=== PATIENT | female | born 1955 | race Caucasian/White ===

== ENCOUNTER 2022-05-11 15:46 | Emergency (ER) | payer BC ==
[2022-05-11 15:58] VITALS: BP 167/93
--- NOTE | 2022-05-11 16:16 | XRAY Report ---
PROCEDURE: Wrist 4 View LT INDICATIONS: Trauma TECHNIQUE: 4 views of the wrist were acquired. COMPARISON: None FINDINGS: Bones: Mildly displaced impacted comminuted fracture of the distal radius with articular surface exte nsion to the radiocarpal joint. Scaphoid view: No evidence of scaphoid fracture. Soft tissues: No suspicious soft tissue calcifications. IMPRESSION: Distal radial fracture as above. Reviewed by: Rozina Linn MD on 05/11/2022 4:15 PM PST Approved by: Rozina Linn MD on 05/11/2022 4:15 PM PST Station ID: [id number]
[2022-05-11] MEDS ORDERED: HYDROcod/ACET 5/325 Prepack 4 PO STA (17:32)
--- NOTE | 2022-05-11 17:34 | ED Physician Documentation ---
PD HPI UPPER EXT INJURY - Stated complaint Stated Complaint: WRIST PAIN - Chief complaint Chief Complaint: Trauma Ext - History obtained from History obtained from: Patient (67-year-old right-handed woman was playing with her grandchildren in the snow and slipped backwards and fell on an outstretched left wrist with mild to moderate pain there. No other injuries. This happened today. Of note she is visiting from out of town.) Review of Systems Eyes: reports: Reviewed and negative PD PAST MEDICAL HISTORY - Allergies Allergies/Adverse Reactions: Allergies Allergy/AdvReac Type Severity Reaction Status Date / Time Penicillins Allergy Hives Verified 05/11/22 15:57 PD ED PE NORMAL - Vitals Vital signs reviewed: Yes - General General: Alert and oriented X 3, No acute distress - Neck Neck: No bony TTP - Extremities Extremities: Other (Mild tenderness of the distal radius without deformity or limited range of motion there. Normal neurovascular function in the left hand.) - Neuro Neuro: Alert and oriented X 3, Normal speech Results - Vitals Vitals: Vital Signs - 24 hr 05/11/22 15:55 Temperature 35.8 C L Heart Rate 81 Respiratory 16 Rate Blood Pressure 167/93 H O2 Saturation 99 Oxygen O2 Source Room air - Rads (name of study) 4-view x-ray of the left wrist demonstrates a impaction fracture of the distal radius Radiology: Final report received, EMP read indepedently Procedures - Splint (location) - Minor Left upper extremity/wrist Splint applied by: Tech Type of splint: Fiberglass, Thumb spica Other: Patient tolerated well, No complications, Neurovascular intact Departure - Departure Disposition: 01 Home, Self Care Clinical Impression: Distal radius fracture, left Condition: Good Record reviewed to determine appropriate education?: Yes Instructions: ED Fx Forearm Radius Ulna No Redu Requ Comments: Follow-up with an orthopedist near her home within a week to a week and a half, take the copy of the x-rays on CD with you to set appointment. Until then keep the splint on and dry, do not remove it, do not get it wet. Tylenol and/or ibuprofen per package instructions for pain.
== END 2022-05-11 17:52 | disposition home or self-care (01) ==
LOC: ED 15:46
DX: S52.592A Other fractures of lower end of left radius, initial encounter for closed fracture (principal); W00.0XXA Fall on same level due to ice and snow, initial encounter; Y93.89 Activity, other specified
CPT/HCPCS: 29125; 99283